=== PATIENT | male | born 2005 | race Two or more races ===

== ENCOUNTER 2025-09-16 18:22 | Emergency (ER) | payer SELFPAY ==
[2025-09-16 18:36] VITALS: BP 129/77; PULSE 86; RESP 19; TEMP 37.6; O2SAT 97; BMI 24.3
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
--- NOTE | 2025-09-16 19:17 | XR_ITS ---
EXAMINATION: Left hand 2 views TECHNIQUE: AP lateral left hand 2 views INDICATIONS: Injury of the hand today, hand pain. FINDINGS: No acute fracture No dislocation No foreign body IMPRESSION: No acute fracture,
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
[2025-09-16] MEDS: IBUPROFEN TAB 400 MG TABLET 800 MG PO (19:28)
[2025-09-16] MEDS: DIPHTH,PERTUSS(ACELL),TET VAC 0.5 ML SYR- ADULT IMi (19:29)
== END 2025-09-16 21:57 | disposition home or self-care (01) ==
PROVIDERS: Emergency Provider Emergency Medicine
DX: S20.219A Contusion of unspecified front wall of thorax, initial encounter (principal); S80.812A Abrasion, left lower leg, initial encounter; S60.222A Contusion of left hand, initial encounter; V89.2XXA Person injured in unspecified motor-vehicle accident, traffic, initial encounter; Z23 Encounter for immunization
CPT/HCPCS: 71046; 73120; 90471; 90715; 99282; A9270